=== PATIENT | female | born 1980 | race Two or more races ===

== ENCOUNTER 2021-10-15 11:08 | Outpatient (CLI) | payer OTHER | END 2021-10-15 11:14 | disposition home or self-care (01) | LOC: RAD 11:08 | DX: M99.01 Segmental and somatic dysfunction of cervical region (principal); M99.02 Segmental and somatic dysfunction of thoracic region; M99.03 Segmental and somatic dysfunction of lumbar region; M99.05 Segmental and somatic dysfunction of pelvic region ==

== ENCOUNTER → 2023-12-22 09:30 | Outpatient (CLI) | payer OTHER ==
[~2023-12-22 09:30] MED LIST: PRENATAL + DHA1 EAC1
== END | disposition home or self-care (01) ==
LOC: PRENATAL 09:30
PROVIDERS: ATTEND Obstetrics & Gynecology Maternal & Fetal Medicine
DX: O35.9XX0 Maternal care for (suspected) fetal abnormality and damage, unspecified, not applicable or unspecified (principal); O35.3XX0 Maternal care for (suspected) damage to fetus from viral disease in mother, not applicable or unspecified; O44.02 Complete placenta previa NOS or without hemorrhage, second trimester; O09.522 Supervision of elderly multigravida, second trimester; O34.219 Maternal care for unspecified type scar from previous cesarean delivery; O34.02 Maternal care for unspecified congenital malformation of uterus, second trimester; Z3A.20 20 weeks gestation of pregnancy

== ENCOUNTER → 2024-02-17 09:40 | Outpatient (CLI) | payer OTHER | END | disposition home or self-care (01) | LOC: PRENATAL 09:40 | PROVIDERS: ATTEND Obstetrics & Gynecology Maternal & Fetal Medicine | DX: O26.849 Uterine size-date discrepancy, unspecified trimester (principal); O09.529 Supervision of elderly multigravida, unspecified trimester; O34.219 Maternal care for unspecified type scar from previous cesarean delivery; O34.00 Maternal care for unspecified congenital malformation of uterus, unspecified trimester; Z3A.27 27 weeks gestation of pregnancy ==

== ENCOUNTER → 2024-02-27 09:08 | Outpatient (CLI) | payer OTHER ==
[2024-02-27 10:10] LABS: HEMATOCRIT 31.8 % (36.0-45.00); HEMOGLOBIN 11.1 g/dL (12.0-15.00); MEAN CELL VOLUME 93.7 fL (80.00-100.00); MEAN CORPUSCULAR HEMOGLOBIN 32.8 pg (27.00-32.0); PLATELET COUNT 303 K/uL (150-450); RED BLOOD COUNT 3.39 M/uL (4.00-6.00); RED CELL DISTRIBUTION WIDTH 13.1 % (11.5-14.5)
[2024-02-27 10:22] LABS: URINE APPEARANCE Clear; URINE BILIRRUBIN Negative (NEGATIVE); URINE BLOOD Negative; URINE COLOR Yellow; URINE GLUCOSE Negative (NEGATIVE); URINE KETONE Negative (NEGATIVE); URINE LEUKOCYTE Large; URINE NITRATE Negative; URINE PROTEIN Negative (NEGATIVE); URINE UROBILINOGEN 0.2 E.U./dl
[2024-02-27 10:27] LABS: URINE BACTERIA 4511.7 uL (0.0-1933); URINE EPITHELIAL CELLS 35.5 uL (0.0-38.8); URINE RBC 8.3 uL (0.0-20.8); URINE WBC 249.2 uL (0.0-23.2)
[2024-02-27 10:45] LABS: URINE CAST 1.22 uL (0.0-1.40)
[2024-02-27 10:46] LABS: URINE YEAST MODERATE /hpf
[2024-02-27 11:10] LABS: ALBUMIN 2.7 gm/dL (3.4-5.0); BILIRUBIN TOTAL 0.49 mg/dL (0.3-1.2); CALCIUM 8.7 mg/dL (8.5-10.1); CREATININE SERUM 0.54 mg/dL (0.55-1.02); GFR 124.41; GLOBULINA 3.5 G/DL (2.4-3.5); POTASSIUM 3.9 mEq/L (3.5-5.1); TOTAL PROTEIN 6.2 gm/dL (6.4-8.2)
== END | disposition home or self-care (01) ==
LOC: LAB 09:08
PROVIDERS: ATTEND Specialist
DX: Z34.80 Encounter for supervision of other normal pregnancy, unspecified trimester (principal)

== ENCOUNTER 2024-03-25 13:15 | Outpatient (CLI) | payer OTHER | END 2024-03-25 13:16 | disposition home or self-care (01) | LOC: PRENATAL 13:15 | PROVIDERS: ATTEND Obstetrics & Gynecology Maternal & Fetal Medicine | DX: O26.849 Uterine size-date discrepancy, unspecified trimester (principal); O36.8199 Decreased fetal movements, unspecified trimester, other fetus; O09.529 Supervision of elderly multigravida, unspecified trimester; O34.219 Maternal care for unspecified type scar from previous cesarean delivery; O34.00 Maternal care for unspecified congenital malformation of uterus, unspecified trimester; Z3A.33 33 weeks gestation of pregnancy ==

== ENCOUNTER 2024-04-05 14:07 | Outpatient (CLI) | payer OTHER | END 2024-04-05 14:08 | disposition home or self-care (01) | LOC: LAB 14:07 | PROVIDERS: ATTEND Specialist | DX: Z34.80 Encounter for supervision of other normal pregnancy, unspecified trimester (principal) ==

== ENCOUNTER 2024-04-24 05:52 | Inpatient (IN) | payer OTHER ==
[~2024-04-24] VITALS: Ht 157.5 cm; Wt 2.7 kg
[2024-04-24] MEDS ORDERED: CEFAZOLIN SODIUM 1,000 MG VIAL IV SCH (06:00)
[2024-04-24] MEDS ORDERED: RINGERS SOLUTION,LACTATED 1,000 ML IV SCH ×2 (06:00→11:15)
[2024-04-24 06:10] VITALS: BP 109/69
[2024-04-24 07:14] VITALS: BP 103/67
[2024-04-24 08:13] LABS: URINE APPEARANCE Cloudy; URINE BILIRRUBIN Negative (NEGATIVE); URINE BLOOD Negative; URINE COLOR Dark Yellow; URINE GLUCOSE Negative (NEGATIVE); URINE LEUKOCYTE Small; URINE NITRATE Negative
[2024-04-24 08:15] LABS: URINE BACTERIA 458.9 uL (0.0-1933); URINE CAST 1.76 uL (0.0-1.40); URINE EPITHELIAL CELLS 69.6 uL (0.0-38.8); URINE RBC 8.2 uL (0.0-20.8); URINE WBC 134.3 uL (0.0-23.2)
[2024-04-24 08:31] LABS: ALBUMIN 2.8 gm/dL (3.4-5.0); BILIRUBIN TOTAL 0.68 mg/dL (0.3-1.2); CALCIUM 8.6 mg/dL (8.5-10.1); CREATININE SERUM 0.58 mg/dL (0.55-1.02); GFR 114.56; GLOBULINA 3.5 G/DL (2.4-3.5); POTASSIUM 3.91 mEq/L (3.5-5.1); TOTAL PROTEIN 6.3 gm/dL (6.4-8.2)
[2024-04-24] MEDS ORDERED: OXYTOCIN 10 UNITS/ML VIAL IV ONE (08:45)
[2024-04-24] MEDS ORDERED: ERYTHROMYCIN BASE OPHT 1GM EACH TUBE OP ONE (08:45)
[2024-04-24 08:50] LABS: INR 0.97; PARTIAL THROMBOPLASTIN TIME 28.4 SECONDS (22.0-34.0); PROTHROMBIN TIME 10.6 SECONDS (9.0-11.5)
[2024-04-24 09:11] LABS: HEMATOCRIT 35.9 % (36.0-45.00); HEMOGLOBIN 12.5 g/dL (12.0-15.00); MEAN CELL VOLUME 93.1 fL (80.00-100.00); MEAN CORPUSCULAR HEMOGLOBIN 32.4 pg (27.00-32.0); MEAN CORPUSCULAR HGB CONC 34.8 g/dl (32.0-36.0); PLATELET COUNT 275 K/uL (150-450); RED BLOOD COUNT 3.86 M/uL (4.00-6.00); RED CELL DISTRIBUTION WIDTH 13.4 % (11.5-14.5)
[2024-04-24 09:27] LABS: URINE KETONE 80 (NEGATIVE); URINE PROTEIN 100 (NEGATIVE)
[2024-04-24] MEDS ORDERED: MORPHINE SULFATE 4 MG/ML CARTRIDGE IV PRN (11:00)
[2024-04-24] MEDS ORDERED: OXYTOCIN 1,000 ML IV SCH (11:15)
[2024-04-24] MEDS ORDERED: MEPERIDINE HCL 25 MG/ML AMPUL IV ONE (11:25)
[2024-04-24] MEDS ORDERED: MEPERIDINE HCL/PF 25 MG/ML VIAL IV PRN (11:45)
[2024-04-24] MEDS ORDERED: MORPHINE SULFATE 4 MG in 0.9 % SODIUM CHLORIDE 9 ML IV PRN (11:45)
[2024-04-24] MEDS ORDERED: ONDANSETRON HCL 2 MG/ML VIAL IV PRN (11:45)
[2024-04-24] MEDS ORDERED: MORPHINE SULFATE 4 MG/ML VIAL IV ONE ×2 (11:55→12:25)
[2024-04-24] MEDS ORDERED: SIMETHICONE 125 MG CAPSULE PO SCH (13:00)
[2024-04-24 14:35] LABS: HEMATOCRIT 33.9 % (36.0-45.00); HEMOGLOBIN 11.5 g/dL (12.0-15.00); MEAN CELL VOLUME 95.2 fL (80.00-100.00); MEAN CORPUSCULAR HEMOGLOBIN 32.3 pg (27.00-32.0); PLATELET COUNT 265 K/uL (150-450); RED BLOOD COUNT 3.56 M/uL (4.00-6.00); RED CELL DISTRIBUTION WIDTH 13.3 % (11.5-14.5)
[2024-04-24 15:37] VITALS: BP 96/61
[2024-04-24] MEDS ORDERED: DOCUSATE SODIUM 100MG CAP PO SCH (17:00)
[2024-04-25 00:50] VITALS: BP 112/73
[2024-04-25] MEDS ORDERED: IBUprofen 800 MG TABLET PO SCH (01:00)
[2024-04-25 08:04] VITALS: BP 105/63
[2024-04-25 15:06] VITALS: BP 96/66
[2024-04-26 02:16] VITALS: BP 102/69
[2024-04-26 08:16] VITALS: BP 100/65
[2024-04-26 16:32] VITALS: BP 108/73
[2024-04-26 23:38] VITALS: BP 94/66
[2024-04-27 07:32] VITALS: BP 128/75
== END 2024-04-27 15:23 | disposition home or self-care (01) | DRG 788 ==
LOC: LDR 05:52 → OB/GYN 10:35
PROVIDERS: Obstetrics & Gynecology; ADMIT Specialist; ATTEND Specialist
PROC: 4A1HXCZ Monitoring of Products of Conception, Cardiac Rate, External Approach (ICD-10-PCS; 2024-04-24)
PROC: 4A1HXCZ Monitoring of Products of Conception, Cardiac Rate, External Approach (ICD-10-PCS; 2024-04-24)
PROC: 10D00Z1 Extraction of Products of Conception, Low, Open Approach (ICD-10-PCS; principal; 2024-04-24 09:30)
DX: O34.211 Maternal care for low transverse scar from previous cesarean delivery (principal); Z3A.37 37 weeks gestation of pregnancy; Z37.0 Single live birth; Z20.822 Contact with and (suspected) exposure to COVID-19; Z30.2 Encounter for sterilization